=== PATIENT | male | born 1970 | race Caucasian/White ===

== ENCOUNTER 2016-12-28 16:22 | Emergency (ER) | payer OTHER ==
[~2016-12-28] VITALS: Ht 182.9 cm; Wt 95.3 kg
[~2016-12-28 16:22] MED LIST: AMLODIPINE BESYL5 M1 PO; ASPIRIN EC325 MG PO; ASPIRIN EC81 M1 PO; ASPIRIN81 M1 PO; CLONAZEPAM0.5 MG PO; COMPAZINE10 M1 PO; COZAAR25 M1 PO; CYMBALTA 20 MG20 MG PO; CYMBALTA 30 MG30 MG PO; DILAUDID2 M1 PO; DILAUDID2 MG PO; DULOXETINE HCL30 MG PO; ECOTRIN81 MG PO; ELAVIL25 MG PO; ELIQUIS5 M1 PO; ELIQUIS5 MG PO; HYDROMORPHONE HC2 M1 PO; HYDROMORPHONE HC2 MG PO; IMDUR30 MG PO; KLONOPIN 1MG TAB1 MG PO; KLONOPIN1 MG PO; LIPITOR80 M1 PO; LOPRESSOR100 MG PO; LOPRESSOR50 MG PO; LYRICA25 MG PO; LYRICA50 MG PO; MARINOL2.5 M1 PO; METOPROLOL SUC100 M1 PO; METOPROLOL TART25 M1 PO; MIRALAX17 GM PO; MOTRIN400 MG PO; MS CONTIN15 M1 PO; MS CONTIN15 MG PO; MS CONTIN30 MG PO; NICOTINE T21 MG/24 H TOP; NITROGLYCERIN0.4 M1 SL; ONDANSETRON HCL4 MG PO; ONDANSETRON ODT4 MG PO; OXYCODONE HCL5 M1 PO; OXYCODONE HCL5 M2 PO; OXYCODONE5 M1 PO; OXYCODONE5 MG PO; PERCOCET 325 MG1 TA2 PO; PERCOCET 5-3251 EACH PO; PERCOCET PO; POTASSIUM GLUC550 M1 PO; PRAVASTATIN SOD40 MG PO; PRAVASTATIN40 MG PO; PRAZOSIN PO; PRINIVIL5 M1 PO; PROMETHAZINE HC25 M3 PO; PROMETHAZINE12.5 M2 PO; PROTONIX 40MG T40 MG PO; PROTONIX40 M3 PO; REGLAN10 M1 PO; ROXICODONE5 MG PO; TOPROL XL 100100 MG PO; TRAMADOL HCL50 M1 PO; TYLENOL500 MG PO; ULTRAM(MONOGRAP50 MG PO; ZENPEP DR 15,01 EACH PO; ZENPEP DR 40,01 EACH PO; ZOFRAN 8MG8 MG PO; ZOFRAN ODT4 M1 SL; ZOFRAN ODT4 MG PO; ZOFRAN ODT4 MG SL; ZOFRAN4 M1 SL; [UNRECOGNIZED DRUG - CODE] PO
--- NOTE | 2016-12-28 16:57 | ED GI/GU/ABDOMINAL COMPLAINT ---
History of Present Illness General Chief Complaint: Abdominal Pain/Flank Pain Stated Complaint: ABD PAIN Source: patient Exam Limitations: no limitations Vital Signs & Intake/Output Vital Signs & Intake/Output Vital Signs Date Time Temp Pulse Resp B/P Pulse O2 O2 Flow FiO2 Ox Delivery Rate 12/28 1858 96.6 67 16 128/71 94 Room Air 12/28 1625 98.0 96 18 151/83 100 Room Air Allergies Coded Allergies: NSAIDS (Non-Steroidal Anti-Inflamma (Intermediate, DUE TO PANCREATITIS 07/06/16) Reconcile Medications Amlodipine Besylate 5 MG TABLET 1 TAB PO DAILY HEART (Reported) Apixaban (Eliquis) 5 MG TABLET 1 TAB PO BID BLOOD THINNER (Reported) Aspirin (Ecotrin*) 81 MG TABLET.DR 1 TAB PO DAILY HEART/BLOOD (Reported) Atorvastatin Calcium (Lipitor) 80 MG TABLET 1 TAB PO DAILY CHOLESTEROL ( Reported) Hydrocodone/Acetaminophen (Hydrocodon-Acetaminoph 7.5-325) 7.5 MG-325 MG TABLET 1 TAB PO Q6H PRN PAIN (Reported) Hydromorphone HCl (Dilaudid) 2 MG TABLET 1 TAB PO BIDP PRN pain Lipase/Protease/Amylase (Zenpep Dr 40,000 Units Capsule) 40K-136K CAPSULE.DR 4 CAP PO AC PANCREATIC BURNOUT (Reported) Metoprolol Tartrate 25 MG TABLET 25 MG PO BID HYPERTENSION (Reported) Nitroglycerin 0.4 MG TAB.SUBL 0.4 TAB SL AD PRN CHEST PAIN (Reported) Ondansetron (Zofran Odt) 4 MG TAB.RAPDIS 1 TAB SL TIDP PRN N/V (Reported) Pantoprazole Sodium (Protonix) 40 MG TABLET. 1 TAB PO DAILY GI (Reported) Triage Note: PT TO ED FOR VOMITING SINCE THIS MORNING, NO IMPOROVEMENT WITH ZOFRAN. STATING "I KNOW ITS MY PANCREATITIS". Triage Nurses Notes Reviewed? yes Onset: Gradual Duration: day(s): (1) Timing: recent history Quality/Severity: cramping, moderate, sharpness Severity Numbers: 7 Location: epigastric Radiation: no radiation Activities at Onset: none Prior Abdominal Problems: similar symptoms Past Sexual History: Unobtainable at this time No Modifying Factors: none HPI: Patient is a 46-year-old male with history of chronic pancreatitis presenting to the emergency department with chief complaint of upper abdominal pain that started this morning. Patient reports associated nausea and dry heaving with one episode of emesis this morning. He tried taking Vicodin that he has unknown down with pain without relief. Denies any urinary frequency or urgency or dysuria. Reports 1 episode of blood-tinged sputum with coughing this morning. He has been alcohol free for the past several months. Has been doing well. Has been able to gain weight. Denies any chest pain palpitations or shortness of breath. (ZARA GLASS) Past History Travel History Traveled to [place] past 21 day No Medical History Any Pertinent Medical History? 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 History of MRSA: No History of VRE: No History of CDIFF: No Pneumonia Vaccine: 06/24/16 Influenza Vaccine: 06/24/16 Surgical History Surgical History: cholecystectomy, hip replacement (left x 2), spinal fusion (L3 -L5), R FEMUR FX/SX PELVIC/FX/SX/PLATES/PINS CARDIAC STENT-BARE METAL Psychosocial History Who do you live with Sister Services at Home None What is your primary language Chinese Tobacco Use: Current Daily Use Daily Tobacco Use Amount/Type: => 5 Cigarettes daily ETOH Use: occasional use Illicit Drug Use: denies illicit drug use Family History Family History, If Any: FATHER (COPD- smoker.). , Age 71; Cause: Lung cancer. FH: emphysema FH: lung cancer MOTHER (ES[place]). , Age 54; Cause: Diabetes. Angina FH: diabetes mellitus Relation not specified for: coronary artery disease Hx Contributory? No (ZARA GLASS) Review of Systems Review of Systems Constitutional: Reports: no symptoms. Comments Review of systems: See HPI, All other systems negative. Constitutional, no chills fever or weight loss HEENT: No visual changes no sore throat no congestion Cardiovascular: No chest pain ,palpitation , orthopnea or ankle swelling Skin, no jaundice no rashes Respiratory: No dyspnea cough sputum or hemoptysis GI: No nausea no vomiting : No dysuria No hematuria Muscle skeletal: no back pain, no neck pain, Neurologic: No numbness no confusion Psych: No stress anxiety or depression,. Heme/endocrine: No bruising no bleeding no polyuria or polydipsia Immunology: No splenectomy or history of AIDS (ZARA GLASS) Physical Exam Physical Exam General Appearance: well developed/nourished, no apparent distress, alert, awake , comfortable Gastrointestinal: normal bowel sounds, soft, tenderness Comments: Well-developed well-nourished person in no acute distress HEENT: Pupils equally round and reactive to light and accommodation. Nose is atraumatic. Moist oral mucosa Neck: Normal inspection Back: Nontender, no CVA tenderness. Cardiovascular: Regular rate and rhythms no murmurs rubs or gallops, normal JVP Respiratory: Chest nontender. No respiratory distress.breath sounds clear to auscultation bilaterally Abdomen: Soft, tenderness to palpation in the epigastric region, no rebound or guarding, nondistended, no appreciable organomegaly. Normal bowel sounds. No ascites Extremity: No edema Neuro: Alert oriented x3 Skin: No appreciable rash on exposed skin, skin is warm and dry. Psych: Mood and affect is normal, memory and judgment is normal. Core Measures ACS in differential dx? Yes Severe Sepsis Present: No Septic Shock Present: No (ZARA GLASS) Progress Differential Diagnosis: PANCREATITIS, GASTRITIS, MEDICATION SEEKING, ELECTROLYTE ABNORMALITY, ESOPHAGEAL VARICES, PEPTIC ULCER DISEASE, aaa, mi,acs Plan of Care: Orders Procedure Date/time Status Add-on Test (ER Only) 12/28 171 Active EKG 12/28 1714 Active Add-on Test (ER Only) 12/28 1711 Active TROPONIN LEVEL 12/28 1709 Complete TRIGLYCERIDES 12/28 1709 Complete ETHANOL 12/28 1709 Complete LIPASE 12/28 1645 Complete COMPREHENSIVE METABOLIC PANEL 12/28 1645 Complete CBC WITHOUT DIFFERENTIAL 12/28 164 Complete AMYLASE 12/28 1645 Complete Laboratory Tests 12/28/16 1709: Anion Gap 11, Estimated GFR > 60, BUN/Creatinine Ratio 14.4, Glucose 99, Calcium 9.9, Total Bilirubin 0.6, AST 25, ALT 43, Alkaline Phosphatase 65, Troponin I < 0.01, Total Protein 7.3, Albumin 4.6, Globulin 2.7, Albumin/Globulin Ratio 1.7, Triglycerides 251 H, Amylase 48, Lipase 309 H, CBC w Diff NO MAN DIFF REQ, RBC 5.07, MCV 90.3, MCH 30.2, RDW 14.0, MPV 8.8, Gran % 68.0, Lymphocytes % 24.1, Monocytes % 6.2, Eosinophils % 1.1, Basophils % 0.6, Absolute Granulocytes 4.8, Absolute Lymphocytes 1.7, Absolute Monocytes 0.4, Absolute Eosinophils 0.1, Absolute Basophils 0, PUBS MCHC 33.4, Serum Alcohol < 10.0 Initial ED EKG: NSR Prior EKG: unchanged Comments: On arrival patient is afebrile with reproducible pain in the epigastric region. History of chronic otitis has been seen here several times for same pain. Patient also complaining of nausea. Patient medicated with IV fluids, nausea medication. Started with IV Tylenol. CBC, CMP, amylase and lipase and triglycerides sent. Patient informed to follow up results . Patient still having pain after IV Tylenol. IV Dilaudid ordered. Fluid still infusing. Patient reports that nausea has improved. 12/28/2016 6:50:45 PM patient reporting that he feels/better after Dilaudid. Patient will be going home with a limited prescription for Dilaudid. Likely exacerbation of chronic pancreatitis. Patient educated on triglycerides, he'll modify diet. He will follow-up with his PCP. EKG is unchanged. (ZARA GLASS) Departure Departure Time of Disposition: 1842 Disposition: HOME OR SELF CARE Condition: Stable Clinical Impression Primary Impression: Chronic pancreatitis Qualifiers: Pancreatitis type: unspecified pancreatitis type Qualified Code: K86.1 - Other chronic pancreatitis Referrals: ADDIS WILBURN MD (PCP/Family) Additional Instructions: Follow-up with your primary care physician call to make appt. Increase fluids. you were given a copy of your lab work results. Clear liquid diet for next 24- 48 hours. your triglycerides were elevated make sure you follow-up with your primary care physician regarding this. Departure Forms: Customer Survey General Discharge Information Prescriptions: Current Visit Scripts Hydromorphone HCl (Dilaudid) 1 TAB PO BIDP PRN pain #10 TAB (ZARA GLASS) PA/CLIENT LIAISON Co-Sign Statement Statement: ED Attending supervision documentation- [] I saw and evaluated the patient. I have also reviewed all the pertinent lab results and diagnostic results. I agree with the findings and the plan of care as documented in the PA's/CLIENT LIAISON's documentation. [X] I have reviewed the ED Record and agree with the PA's/CLIENT LIAISON's documentation. [] Additions or exceptions (if any) to the PAs/CLIENT LIAISON's note and plan are summarized below: [] (SARAHY COLE,ALIVIA Petty)
[2016-12-28] MEDS ORDERED: HYDROCODON-ACE1 EAC3 PO (17:09)
[2016-12-28 17:23] LABS: ABSOLUTE BASOPHIL COUNT 0 /CUMM (0.0-0.2); ABSOLUTE EOSINOPHIL COUNT 0.1 /CUMM (0.0-0.7); ABSOLUTE GRANULOCYTE CT 4.8 /CUMM (1.4-6.5); ABSOLUTE LYMPH COUNT 1.7 /CUMM (1.2-3.4); ABSOLUTE MONOCYTE COUNT 0.4 /CUMM (0.10-0.60); BASOPHIL % 0.6 % (0.0-2.0); EOSINOPHIL % 1.1 % (0-5); HEMATOCRIT 45.8 % (42-52); MEAN CORPUSCULAR HGB 30.2 PG (27.0-31.0); MEAN CORPUSCULAR HGB CONC 33.4 G/DL (33.0-37.0); MEAN CORPUSCULAR VOLUME 90.3 FL (80.0-94.0); MEAN PLATELET VOLUME 8.8 FL (7.4-10.4); PLATELET COUNT 215 /CUMM (130-400); RED BLOOD CELL CT 5.07 /CUMM (4.70-6.10); WHITE BLOOD CELL COUNT 7.1 /CUMM (4.8-10.8)
[2016-12-28] MEDS ORDERED: DILAUDID2 M1 PO ×2 (18:45→18:47)
[2016-12-28 18:58] VITALS: BP 128/71
== END 2016-12-28 18:58 ==
LOC: ERH 16:22
PROVIDERS: Physician Assistant
DX: K86.1 Other chronic pancreatitis (principal)
CPT/HCPCS: 93005; 93010; 96374; 96375; G0480; J0131; J2765

== ENCOUNTER 2017-02-19 18:12 | Emergency (ER) | payer OTHER ==
[~2017-02-19] VITALS: Ht 185.4 cm; Wt 90.7 kg
[~2017-02-19 18:12] MED LIST changes: +HYDROCODON-ACE1 EAC3 PO
[2017-02-19 18:17] VITALS: BP 152/102
[2017-02-19 18:35] LABS: ABSOLUTE BASOPHIL COUNT 0.1 /CUMM (0.0-0.2); ABSOLUTE EOSINOPHIL COUNT 0.2 /CUMM (0.0-0.7); ABSOLUTE GRANULOCYTE CT 5.6 /CUMM (1.4-6.5); ABSOLUTE LYMPH COUNT 2.3 /CUMM (1.2-3.4); ABSOLUTE MONOCYTE COUNT 0.4 /CUMM (0.10-0.60); BASOPHIL % 0.7 % (0.0-2.0); EOSINOPHIL % 1.9 % (0-5); HEMATOCRIT 41.9 % (42-52); MEAN CORPUSCULAR HGB 29.6 PG (27.0-31.0); MEAN CORPUSCULAR HGB CONC 33.2 G/DL (33.0-37.0); MEAN PLATELET VOLUME 8.9 FL (7.4-10.4); PLATELET COUNT 259 /CUMM (130-400); RBC DISTRIBUTION WIDTH 14.1 % (11.5-14.5); WHITE BLOOD CELL COUNT 8.5 /CUMM (4.8-10.8)
--- NOTE | 2017-02-19 19:42 | ED GI/GU/ABDOMINAL COMPLAINT ---
History of Present Illness General Chief Complaint: Abdominal Pain/Flank Pain Stated Complaint: ABD PAIN, Hx CHRONIC PANCREATITIS Source: patient Exam Limitations: no limitations Vital Signs & Intake/Output Vital Signs & Intake/Output Vital Signs Date Time Temp Pulse Resp B/P B/P Pulse O2 O2 Flow FiO2 Mean Ox Delivery Rate 02/19 1817 97.6 106 20 152/102 98 Room Air ED Intake and Output 02/20 0000 02/19 1200 Intake Total Output Total Balance Patient 200 lb Weight Weight Estimated Measurement Method Allergies Coded Allergies: NSAIDS (Non-Steroidal Anti-Inflamma (Intermediate, DUE TO PANCREATITIS 07/06/16) Reconcile Medications Amlodipine Besylate 5 MG TABLET 1 TAB PO DAILY HEART (Reported) Apixaban (Eliquis) 5 MG TABLET 1 TAB PO BID BLOOD THINNER (Reported) Aspirin (Ecotrin*) 81 MG TABLET.DR 1 TAB PO DAILY HEART/BLOOD (Reported) Atorvastatin Calcium (Lipitor) 80 MG TABLET 1 TAB PO DAILY CHOLESTEROL ( Reported) Hydrocodone/Acetaminophen (Hydrocodon-Acetaminoph 7.5-325) 7.5 MG-325 MG TABLET 1 TAB PO Q6H PRN PAIN (Reported) Hydromorphone HCl (Dilaudid) 2 MG TABLET 1 TAB PO BIDP PRN pain Lipase/Protease/Amylase (Zenpep Dr 40,000 Units Capsule) 40K-136K CAPSULE.DR 4 CAP PO AC PANCREATIC BURNOUT (Reported) Metoprolol Tartrate 25 MG TABLET 25 MG PO BID HYPERTENSION (Reported) Nitroglycerin 0.4 MG TAB.SUBL 0.4 TAB SL AD PRN CHEST PAIN (Reported) Ondansetron (Zofran Odt) 4 MG TAB.RAPDIS 1 TAB SL TIDP PRN N/V (Reported) Oxycodone HCl/Acetaminophen (Percocet 5-325 MG Tablet) 5 MG-325 MG TABLET 1 TAB PO 4XDP PRN PAIN six...[id number] Pantoprazole Sodium (Protonix) 40 MG TABLET.DR 1 TAB PO DAILY GI (Reported) Promethazine HCl (Phenergan) 25 MG SUPP.RECT 1 SUPP MD TID PRN NAUSEA Triage Note: PT TO ED C/O "PANCREATITIS FLARE UP". H/O SAME. HAS BEEN HAVING UPPER ABD PAIN X A FEW DAYS. ALSO C/O N/V/D. Triage Nurses Notes Reviewed? yes Onset: Gradual Duration: day(s):, waxing and waning Timing: recent history Quality/Severity: burning, cramping Location: epigastric Radiation: back Activities at Onset: eating Prior Abdominal Problems: similar symptoms Modifying Factors: Worsens With: palpation, vomiting. Associated Symptoms: abdominal pain, nausea/vomiting HPI: 46 yo gentleman h/o chronic pancreatitis x 5, s/p sphincter of otti dilation x 5, chonic pain, presents with mid epigastric pain radiating to the mid back consistent with prior episodes of chronic pancreatitis. He notes that he has been vomiting all day... "And now it's yellow... I haven't had anything to eat all day... and my stool are loose too." No fever, chills, chest pain, nausea, shortness of breath. Past History Travel History Traveled to [place] past 21 day No Medical History Any Pertinent Medical History? 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 , Age 71; Cause: Lung cancer. FH: emphysema FH: lung cancer MOTHER (ESRD/[place]). , Age 54; Cause: Diabetes. Angina FH: diabetes mellitus Relation not specified for: coronary artery disease Hx Contributory? No Review of Systems Review of Systems Constitutional: Reports: no symptoms. EENTM: Reports: no symptoms. Respiratory: Reports: no symptoms. Cardiovascular: Reports: no symptoms. GI: Reports: no symptoms. Genitourinary: Reports: no symptoms. Musculoskeletal: Reports: no symptoms. Skin: Reports: no symptoms. Neurological/Psychological: Reports: no symptoms. Hematologic/Endocrine: Reports: no symptoms. Immunologic/Allergic: Reports: no symptoms. All Other Systems: Reviewed and Negative Physical Exam Physical Exam General Appearance: well developed/nourished, mild distress Head: atraumatic, normal appearance Eyes: Bilateral: normal appearance. Ears, Nose, Throat, Mouth: hearing grossly normal Neck: normal inspection, supple, full range of motion, normal alignment Respiratory: normal breath sounds, chest non-tender, no respiratory distress, quiet respiration, lungs clear Cardiovascular: regular rate/rhythm Gastrointestinal: normal bowel sounds, soft, non-tender, mild mid epigastric tenderness to palpation Back: normal inspection Extremities: normal range of motion Neurologic/Psych: no motor/sensory deficits, awake, alert, oriented x 3 Skin: intact, normal color, warm/dry Core Measures ACS in differential dx? No Severe Sepsis Present: No Septic Shock Present: No Progress Differential Diagnosis: colon cancer, cholecystitis, diverticulitis, gastritis, hepatitis, pancreatitis Plan of Care: Orders Procedure Date/time Status Add-on Test (ER Only) 02/19 1959 Active EKG 02/19 1959 Active TROPONIN LEVEL 02/20 1828 Complete LIPASE 02/19 1819 Complete COMPREHENSIVE METABOLIC PANEL 02/19 1819 Complete CBC WITHOUT DIFFERENTIAL 02/19 1819 Complete AMYLASE 02/19 1819 Complete Laboratory Tests 02/19/171827: Anion Gap 15, Estimated GFR > 60, BUN/Creatinine Ratio 18.8, Glucose 105 H, Calcium 9.7, Total Bilirubin 0.5, AST 19, ALT 43, Alkaline Phosphatase 106, Troponin I < 0.01, Total Protein 7.5, Albumin 4.8, Globulin 2.7, Albumin/ Globulin Ratio 1.8, Amylase 81, Lipase 226, CBC w Diff NO MAN DIFF REQ, RBC 4.70 , MCV 89.0, MCH 29.6, RDW 14.1, MPV 8.9, Gran % 66.0, Lymphocytes % 27.1, Monocytes % 4.3, Eosinophils % 1.9, Basophils % 0.7, Absolute Granulocytes 5.6, Absolute Lymphocytes 2.3, Absolute Monocytes 0.4, Absolute Eosinophils 0.2, Absolute Basophils 0.1, PUBS MCHC 33.2 Initial ED EKG: normal axis, normal intervals, normal p-waves, normal QRS complex, normal sinus rhythm Departure Departure Disposition: HOME OR SELF CARE Condition: Stable Clinical Impression Primary Impression: Chronic pancreatitis Referrals: ADDIS WILBURN MD (PCP/Family) Departure Forms: Customer Survey General Discharge Information Prescriptions: Current Visit Scripts Oxycodone HCl/Acetaminophen (Percocet 5-325 MG Tablet) 1 TAB PO 4XDP PRN PAIN #6 TAB six...[id number] Promethazine HCl (Phenergan) 1 SUPP MD TID PRN NAUSEA #10 SUPP Ref 1 Comments pt received 2 liters ns and supportive medications... pt felt better... pt safe for discharge.
[2017-02-19] MEDS ORDERED: PERCOCET 5-3251 EACH PO (22:25)
[2017-02-19] MEDS ORDERED: PHENERGAN25 M2 PR (22:25)
== END 2017-02-19 22:34 ==
LOC: ERH 18:12
PROVIDERS: Emergency Medicine
DX: K86.1 Other chronic pancreatitis (principal)
CPT/HCPCS: 93005; 93010; 96374; 96375; J2405

== ENCOUNTER 2017-04-17 22:47 | Inpatient (IN) | payer OTHER ==
[~2017-04-17] VITALS: Ht 185.4 cm; Wt 95.3 kg
[~2017-04-17 22:47] MED LIST changes: +PHENERGAN25 M2 PR
--- NOTE | 2017-04-17 22:55 | NUR ---
PT RETURNS TO ED FOR CONTINUED IDOPATHIC CHRONIC PANCREATITIS PAIN. SEEN FOR SAME EARLIER TODAY. "I DIDN'T WAS TO BE ADMITTED BECAUSE IT WAS MY BIRTHDAY" WAS DISCHARGED AT APPROX 1830. TOOK A PERCOCET WITH WATER. PAIN BACK UP TO 06/03
--- NOTE | 2017-04-18 00:01 | NUR ---
IV EST #20 RH
--- NOTE | 2017-04-18 00:26 | NUR ---
PT MEDICATED PER EMAR FOR PAIN 06/03 WITH DILAUDID. FLUIDS RUNNING LITER 1 AND PT ALSO MEDICATED FOR NAUSEA
[2017-04-18 00:36] LABS: ABSOLUTE BASOPHIL COUNT 0.1 /CUMM (0.0-0.2); ABSOLUTE EOSINOPHIL COUNT 0.1 /CUMM (0.0-0.7); ABSOLUTE LYMPH COUNT 2.6 /CUMM (1.2-3.4); ABSOLUTE MONOCYTE COUNT 0.4 /CUMM (0.10-0.60); BASOPHIL % 0.8 % (0.0-2.0); EOSINOPHIL % 1.6 % (0-5); GRANULOCYTE % 60.8 % (42.2-75.2); HEMATOCRIT 39.4 % (42-52); MEAN CORPUSCULAR HGB 28.4 PG (27.0-31.0); MEAN CORPUSCULAR HGB CONC 33.5 G/DL (33.0-37.0); MEAN CORPUSCULAR VOLUME 84.8 FL (80.0-94.0); MEAN PLATELET VOLUME 8.7 FL (7.4-10.4); PLATELET COUNT 236 /CUMM (130-400); RED BLOOD CELL CT 4.65 /CUMM (4.70-6.10); WHITE BLOOD CELL COUNT 8.1 /CUMM (4.8-10.8)
--- NOTE | 2017-04-18 00:52 | ED GI/GU/ABDOMINAL COMPLAINT ---
History of Present Illness General Chief Complaint: Abdominal Pain/Flank Pain Stated Complaint: PANCREATITIS Source: patient Exam Limitations: no limitations Vital Signs & Intake/Output Vital Signs & Intake/Output Vital Signs Date Time Temp Pulse Resp B/P B/P Pulse O2 O2 Flow FiO2 Mean Ox Delivery Rate 04/17 2251 97.7 100 18 168/99 98 Room Air ED Intake and Output 04/18 0000 04/17 1200 Intake Total Output Total Balance Patient 210 lb Weight Allergies Coded Allergies: NSAIDS (Non-Steroidal Anti-Inflamma (Intermediate, DUE TO PANCREATITIS 03/27/17) Reconcile Medications Amlodipine Besylate 5 MG TABLET 1 TAB PO DAILY HEART (Reported) Apixaban (Eliquis) 5 MG TABLET 1 TAB PO BID BLOOD THINNER (Reported) Aspirin (Ecotrin*) 81 MG TABLET.DR 1 TAB PO DAILY HEART/BLOOD (Reported) Atorvastatin Calcium (Lipitor) 80 MG TABLET 1 TAB PO DAILY CHOLESTEROL ( Reported) Lipase/Protease/Amylase (Ion Ha 15,000 Units Capsule) 15-51-82K CAPSULE. 4 CAP PO AC PANCREATIC BURNOUT (Reported) Lipase/Protease/Amylase (Ion Ha 15,000 Units Capsule) 15-51-82K CAPSULE.DR 1 CAP PO AC SNACKS (Reported) Metoprolol Tartrate 25 MG TABLET 25 MG PO BID HYPERTENSION (Reported) Nitroglycerin 0.4 MG TAB.SUBL 0.4 TAB SL AD PRN CHEST PAIN (Reported) Ondansetron (Zofran Odt) 4 MG TAB.RAPDIS 1 TAB SL TIDP PRN N/V (Reported) Ondansetron (Zofran Odt) 4 MG TAB.RAPDIS 1 TAB SL TID PRN nausea Oxycodone HCl/Acetaminophen (Percocet 5-325 MG Tablet) 5 MG-325 MG TABLET 1-2 TAB PO Q6P PRN pancreatitis Pantoprazole Sodium (Protonix) 40 MG TABLET.DR 1 TAB PO DAILY GI (Reported) Promethazine HCl (Phenergan) 25 MG SUPP.RECT 1 SUPP SD TID PRN NAUSEA Triage Note: PT RETURNS TO ED FOR CONTINUED IDOPATHIC CHRONIC PANCREATITIS PAIN. SEEN FOR SAME EARLIER TODAY. "I DIDN'T WAS TO BE ADMITTED BECAUSE IT WAS MY BIRTHDAY" WAS DISCHARGED AT APPROX 1830. TOOK A PERCOCET WITH WATER. PAIN BACK UP TO 06/03 Triage Nurses Notes Reviewed? yes Onset: Abrupt Duration: day(s):, constant, continues in ED Timing: recent history Location: epigastric Radiation: no radiation Activities at Onset: none No Modifying Factors: none HPI: 47-year-old male comes into emergency room with complaints of epigastric pain. History of pancreatitis and pancreatic burnout. Sharp pain. Associated vomiting. Patient seen here earlier today. Patient reports that he continues to vomit. He was told to be admitted earlier today but decided that he wanted to go home. He comes back with worsening symptoms and worsening pain. Continues to vomit home. Feels like his previous pancreatitis. Pain is sharp. Related strictly to his back. (JEANNINE OLIVA) Past History Travel History Traveled to [place] past 21 day No Medical History Any Pertinent Medical History? 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 , Age 71; Cause: Lung cancer. FH: emphysema FH: lung cancer MOTHER ([place]). , Age 54; Cause: Diabetes. Angina FH: diabetes mellitus Relation not specified for: coronary artery disease Hx Contributory? No (JEANNINE OLIVA) Review of Systems Review of Systems Constitutional: Reports: no symptoms. EENTM: Reports: no symptoms. Respiratory: Reports: no symptoms. Cardiovascular: Reports: no symptoms. GI: Reports: see HPI. Genitourinary: Reports: no symptoms. Musculoskeletal: Reports: no symptoms. Skin: Reports: no symptoms. Neurological/Psychological: Reports: no symptoms. Hematologic/Endocrine: Reports: no symptoms. Immunologic/Allergic: Reports: no symptoms. All Other Systems: Reviewed and Negative (JEANNINE OLIVA) Physical Exam Physical Exam General Appearance: well developed/nourished, mild distress Head: atraumatic Eyes: Bilateral: normal appearance. Ears, Nose, Throat, Mouth: hearing grossly normal, moist mucous membrane Neck: normal inspection, full range of motion Respiratory: normal breath sounds, no respiratory distress Cardiovascular: regular rate/rhythm Gastrointestinal: soft, tenderness Back: normal inspection Extremities: normal range of motion Neurologic/Psych: awake, alert, oriented x 3 Skin: intact, normal color Core Measures ACS in differential dx? No Severe Sepsis Present: No Septic Shock Present: No (JEANNINE OLIVA) Progress Differential Diagnosis: appendicitis, cholecystitis, hepatitis, ischemic bowel, pancreatitis, peptic ulcer, PUD/GERD, perforated viscous, pyelonephritis, ureterolithiasis, urinary retention, urethritis Plan of Care: Orders Procedure Date/time Status Nothing by Mouth 04/18 B Active ED Holding Orders 04/18 107 Active Admit to inpatient 04/18 107 Active Vital Signs 04/18 107 Active Code Status 04/18 107 Active TROPONIN LEVEL 04/17 2354 Active LIPASE 04/17 2354 Active COMPREHENSIVE METABOLIC PANEL 04/17 2354 Active CBC WITHOUT DIFFERENTIAL 04/17 2354 Complete AMYLASE 04/17 2354 Active EKG 04/17 2354 Active Current Medications Sig/Dahlia Start time Last Medication Dose Stop Time Status Admin Sodium Chloride 1,000 ML Q6H 04/18 0115 UNVr (Normal Saline 0.9%) Laboratory Tests 04/18/17 0025: Anion Gap 10, Estimated GFR > 60, BUN/Creatinine Ratio 10.0, Glucose 91, Calcium 9.1, Total Bilirubin 0.4, AST 22, ALT 42, Alkaline Phosphatase 89, Troponin I Pending, Total Protein 6.6, Albumin 4.2, Globulin 2.4, Albumin/Globulin Ratio 1.8, Amylase 54, Lipase 134, CBC w Diff NO MAN DIFF REQ, RBC 4.65 L, MCV 84.8, MCH 28.4, RDW 14.0, MPV 8.7, Gran % 60.8, Lymphocytes % 32.0, Monocytes % 4.8, Eosinophils % 1.6, Basophils % 0.8, Absolute Granulocytes 5.0, Absolute Lymphocytes 2.6, Absolute Monocytes 0.4, Absolute Eosinophils 0.1, Absolute Basophils 0.1, PUBS MCHC 33.5 Diagnostic Imaging: Viewed by Me: CT Scan. Discussed w/RAD: CT Scan. Radiology Impression: PATIENT: JESUS CA PRESENT AGE: 47 PATIENT ACCOUNT NO: [id number] : 68 LOCATION: [facility] ORDERING PHYSICIAN: JEANNINE BOLIVAR SERVICE DATE: 04/17/17 EXAM TYPE : CAT - CT ABD & PELVIS W/O IV CONTRAS EXAMINATION: CT ABDOMEN AND PELVIS WITHOUT CONTRAST CLINICAL INFORMATION: Epigastric abdominal pain COMPARISON: TECHNIQUE: Multidetector volumetric imaging was performed from the superior aspect of the liver through the pubic symphysis. Sagittal and coronal reformatted images were obtained on the technologist's workstation. DLP: 687.85 mGy-cm FINDINGS: LUNG BASES: The visualized lung bases are unremarkable. LIVER, GALLBLADDER, AND BILIARY TREE: The liver demonstrates heterogeneous hypoattenuation, suspicious for nonuniform fatty infiltration. No focal hepatic lesion or biliary ductal dilatation is present. Patient is status post cholecystectomy. PANCREAS: Unremarkable. SPLEEN: Unremarkable. ADRENAL GLANDS: Unremarkable. KIDNEYS AND URETERS: The kidneys are normal in size, shape, and attenuation. No hydronephrosis, hydroureter, or obstructing calculi seen. No perinephric stranding. BLADDER: Unremarkable. GASTROINTESTINAL TRACT: The small and large bowel are unremarkable. The appendix is unremarkable. ABDOMINAL WALL: There is a tiny fat-containing left inguinal hernia. LYMPH NODES: Normal. VASCULAR: Scattered atherosclerotic calcifications are present. PELVIC VISCERA: Unremarkable. OSSEOUS STRUCTURES: There are redemonstrated postoperative changes in the spine from L4-S1. Additional postoperative changes are seen in the left pelvis and bilateral proximal femurs. IMPRESSION: No acute findings identified in the abdomen/pelvis. DICTATED BY: ARIEL GRAFF MD DATE/TIME DICTATED:47 INSPECTOR HAIRSPRING:EMILY DATE/TIME TRANSCRIBED:04/18/1749 CONFIDENTIAL, DO NOT COPY WITHOUT APPROPRIATE AUTHORIZATION. <Electronically signed in Other Vendor System> SIGNED BY: ARIEL GRAFF MD 04/18/17 0102 Initial ED EKG: normal intervals, normal p-waves, normal sinus rhythm, rate (67) (JEANNINE OLIVA) Departure Departure Disposition: STILL A PATIENT Condition: Stable Clinical Impression Primary Impression: Acute pancreatitis Referrals: ADDIS WILBURN MD (PCP/Family) Departure Forms: Customer Survey General Discharge Information Admission Note Spoke With: GABRIEL ROME MD Documentation of Exam: Documentation of any treatments & extenuating circumstances including Concerns Regarding Discharge (functional status, medication knowledge or non-compliance, living conditions, etc.) that warrant an admission rather than observation: Patient seen here earlier today. Patient continuing to have pain. Patient will require IV antibiotics. IV pain control. IV fluids. Patient not tolerating oral liquids. GI consultation. History of pancreatic burnout. (JEANNINE OLIVA) PA/FERRY BOAT CAPTAIN Co-Sign Statement Statement: ED Attending supervision documentation- [X] I saw and evaluated the patient. I have also reviewed all the pertinent lab results and diagnostic results. I agree with the findings and the plan of care as documented in the PA's/FERRY BOAT CAPTAIN's documentation. [X] I have reviewed the ED Record and agree with the PA's/FERRY BOAT CAPTAIN's documentation. [] Additions or exceptions (if any) to the PAs/FERRY BOAT CAPTAIN's note and plan are summarized below: [Patient left AMA earlier today. He was supposed to be admitted for pancreatitis. Patient has chronic pancreatitis and expectations Db and all of her RESPONSE. Patient is having periumbilical pain as well as intractable nausea and vomiting. At this point patient will be admitted for pain control and IV fluids. Gastroenterology consultation.] (SARAHY COLE,ALIVIA Dumont
--- NOTE | 2017-04-18 01:02 | CT SCAN REPORT ---
EXAMINATION: CT ABDOMEN AND PELVIS WITHOUT CONTRAST CLINICAL INFORMATION: Epigastric abdominal pain COMPARISON: 08/14/2016 TECHNIQUE: Multidetector volumetric imaging was performed from the superior aspect of the liver through the pubic symphysis. Sagittal and coronal reformatted images were obtained on the technologist's workstation. DLP: 687.85 mGy-cm FINDINGS: LUNG BASES: The visualized lung bases are unremarkable. LIVER, GALLBLADDER, AND BILIARY TREE: The liver demonstrates heterogeneous hypoattenuation, suspicious for nonuniform fatty infiltration. No focal hepatic lesion or biliary ductal dilatation is present. Patient is status post cholecystectomy. PANCREAS: Unremarkable. SPLEEN: Unremarkable. ADRENAL GLANDS: Unremarkable. KIDNEYS AND URETERS: The kidneys are normal in size, shape, and attenuation. No hydronephrosis, hydroureter, or obstructing calculi seen. No perinephric stranding. BLADDER: Unremarkable. GASTROINTESTINAL TRACT: The small and large bowel are unremarkable. The appendix is unremarkable. ABDOMINAL WALL: There is a tiny fat-containing left inguinal hernia. LYMPH NODES: Normal. VASCULAR: Scattered atherosclerotic calcifications are present. PELVIC VISCERA: Unremarkable. OSSEOUS STRUCTURES: There are redemonstrated postoperative changes in the spine from L4-S1. Additional postoperative changes are seen in the left pelvis and bilateral proximal femurs. IMPRESSION: No acute findings identified in the abdomen/pelvis.
--- NOTE | 2017-04-18 01:38 | NUR ---
PT'S ASSIGNEMENT 230 BED 01
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
--- NOTE | 2017-04-18 02:06 | NUR ---
REPORT GIVEN TO LOWELL
[2017-04-18 03:36] VITALS: BP 130/80
--- NOTE | 2017-04-18 03:38 | NUR ---
PATIENT ARRIVED TO ROOM AT 0215. HE ARRIVED VIA WHEELCHAIR FROM THE ER WITH POSSESSIONS IN LAP. NO FAMILY ACCOMPANING HIM. HE WAS ALERT AND ORIENTATED AND INDEPENDANT MOVING INTO BED. HE WAS ORIENTATED TO ROOM AND PRIMARY NURSE AND MST. VITALS STABLE. MD ROJAS AND MD [place]ORD ON HAND TO QUESTION AND ASSESS PATIENT AND ANSWER ANY QUESTIONS HE HAD FOR ME OR THEM. WILL CONTINUE TO MONITOR
--- NOTE | 2017-04-18 05:47 | Admission Certification ---
Admission Certification Certification Statement - As attending physician, I certify that at the time of - admission, based on clinical presentation, severity of - symptoms, need for further diagnostic testing and - therapeutic interventions, and risk of adverse outcomes - without in-hospital treatment, in my clinical assessment, - this patient requires an acute hospital stay for a minimum - of two nights or longer. I have also considered psychsocial - factors such as support system, advanced age, financial - issues, cognitive issues, and failed out-patient treatments, - past re-admission history, safety of patient, and lack of - compliance as applicable. Specific rationale supporting this admission is: Pancreatitis
[2017-04-18 06:24] VITALS: BP 124/80
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
--- NOTE | 2017-04-18 14:18 | PN- Att Addend ---
Attending Addendum Attending Brief Note Pt being admitted for abdominal pain secondary to acute pancreatitis. Will advance diet as tolerated. Pt with multiple prior episodes of pancreatitis and is currently on pancreatic enzyme supplementation. cont on clear liquid diet for now. Pain managment and Iv fluids. [facility] and from [place]. d/w pt the care plan.
[2017-04-18 14:21] VITALS: BP 122/70
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
--- NOTE | 2017-04-18 16:21 | RADIOLOGY REPORT ---
EXAMINATION: XR CHEST CLINICAL INFORMATION: Abdominal pain and vomiting. Pancreatitis. Pleural effusion. COMPARISON: CT scan of the chest dated 04/18/2017. TECHNIQUE: 2 views of the chest were obtained. FINDINGS: The cardiomediastinal silhouette is within normal limits in size. And implantable cardiac technologist is seen projected over the anterior left mid chest. Lungs bilaterally are symmetrically expanded and essentially clear. No focal consolidation is seen. No effusion or pneumothorax is seen. Bony structures are unremarkable. IMPRESSION: No acute cardiopulmonary process seen.
--- NOTE | 2017-04-18 17:20 | NUR ---
ALERT AND ORIENTED X 3. ON ROOM AIR. DENIES SHORTNESS OF BREATH VITAL SIGNS STABLE. DENIES CHEST PAIN. + PULSES. DENIES NUMBNESS/TINGLING NO EDEMA. + BOWEL SOUNDS. COMPLAINS OF NAUSEA. MEDICATION WAS GIVEN FOR DISCOMFORT. STEADY GAIT. WILL CONTINUE TO MONITOR
[2017-04-18 21:40] VITALS: BP 135/78
[2017-04-19 06:48] VITALS: BP 140/70
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
[2017-04-19 08:24] LABS: ABSOLUTE BASOPHIL COUNT 0 /CUMM (0.0-0.2); ABSOLUTE EOSINOPHIL COUNT 0.1 /CUMM (0.0-0.7); ABSOLUTE GRANULOCYTE CT 2.9 /CUMM (1.4-6.5); ABSOLUTE LYMPH COUNT 2.3 /CUMM (1.2-3.4); ABSOLUTE MONOCYTE COUNT 0.4 /CUMM (0.10-0.60); BASOPHIL % 0.5 % (0.0-2.0); EOSINOPHIL % 1.9 % (0-5); GRANULOCYTE % 50.1 % (42.2-75.2); HEMATOCRIT 39.4 % (42-52); MEAN CORPUSCULAR HGB 28.4 PG (27.0-31.0); MEAN CORPUSCULAR HGB CONC 33.4 G/DL (33.0-37.0); MEAN CORPUSCULAR VOLUME 84.9 FL (80.0-94.0); MEAN PLATELET VOLUME 8.9 FL (7.4-10.4); PLATELET COUNT 214 /CUMM (130-400); RED BLOOD CELL CT 4.64 /CUMM (4.70-6.10); WHITE BLOOD CELL COUNT 5.8 /CUMM (4.8-10.8)
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
--- NOTE | 2017-04-19 12:55 | Patient Discharge Instructions ---
Discharge Instructions General Discharge Information You were seen/treated for: Pancreatitis Abdominal pain Watch for these problems: Abdominal Pain, Nausea, vomiting Special Instructions: Please follow up with your PCP within a week of discharge. Please follow-up with chimney sweeper within 1-2 weeks after discharge. Diet Recommended Diet: Low Fat Activity Full Activity/No Limits: Yes Acute Coronary Syndrome Inclusion Criteria At DC or during hospital stay patient has or had the following: ACS DIAGNOSIS No Discharge Core Measures Meds if any: Prescribed or Continued at Discharge Meds if any: NOT Prescribed or Continued at Discharge Congestive Heart Failure Inclusion Criteria At DC or during hospital stay patient has or had the following: CHF DIAGNOSIS No Discharge Core Measures Meds if any: Prescribed or Continued at Discharge Meds if any: NOT Prescribed or Continued at Discharge Cerebrovascular accident Inclusion Criteria At DC or during hospital stay patient has or had the following: CVA/TIA Diagnosis No Discharge Core Measures Meds if any: Prescribed or Continued at Discharge Meds if any: NOT Prescribed or Continued at Discharge Venous thromboembolism Inclusion Criteria VTE Diagnosis No VTE Type NONE VTE Confirmed by (Test) NONE Discharge Core Measures - Per Current guidelines, there needs to be overlap - treatment for the first 5 days of Warfarin therapy. - If discharged on Warfarin prior to 5 days of - overlap therapy, the patient will need to be - assessed for post discharge needs including - *Post discharge parental anticoagulation - *Warfarin and/or parental anticoagulation education - *Follow up date to check INR post discharge At least 5 days overlap therapy as Inpatient No Meds if any: Prescribed or Continued at Discharge Note: Overlap Therapy is Warfarin and Anticoagulant Meds if any: NOT Prescribed or Continued at Discharge
[2017-04-19 14:26] VITALS: BP 118/70
--- NOTE | 2017-04-19 17:17 | PN- Att Addend ---
Attending MD Review Statement Attending Statement Attending MD Statement: examined this patient, discuss w/resident/PA/CHIEF SOLUTION ARCHITECT, agreed w/resident/PA/CHIEF SOLUTION ARCHITECT, reviewed EMR data (avail), discussed w/nursing Attending Assessment/Plan: Laboratory Tests 04/19/17 0715: Anion Gap 10, Estimated GFR > 60, BUN/Creatinine Ratio 9.0, CBC w Diff NO MAN DIFF REQ, RBC 4.64 L, MCV 84.9, MCH 28.4, RDW 14.0, MPV 8.9, Gran % 50.1, Lymphocytes % 40.0, Monocytes % 7.5, Eosinophils % 1.9, Basophils % 0.5, Absolute Granulocytes 2.9, Absolute Lymphocytes 2.3, Absolute Monocytes 0.4, Absolute Eosinophils 0.1, Absolute Basophils 0, PUBS MCHC 33.4 Vital Signs Date Time Temp Pulse Resp B/P B/P Pulse O2 O2 Flow FiO2 Mean Ox Delivery Rate 04/19 1426 98.8 61 18 118/70 97 Room Air 04/19 1031 62 142/72 04/19 1031 62 142/72 04/19 0648 98.1 60 20 140/70 97 Room Air 04/18 2140 98.2 63 18 135/78 97 Room Air 04/18 2135 63 135/78 Reviewed pts records from [facility]- EUS and ERCP- pt admitted with acute on chronic pancreatitis. Will advance the diet to low fat diet. Will see how he tolerates, if tolerating good and pain better will plan dc tomorrow to home.
[2017-04-19 22:29] VITALS: BP 122/62
[2017-04-20 06:39] VITALS: BP 110/50
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
[2017-04-20 08:23] LABS: ABSOLUTE BASOPHIL COUNT 0 /CUMM (0.0-0.2); ABSOLUTE EOSINOPHIL COUNT 0.1 /CUMM (0.0-0.7); ABSOLUTE GRANULOCYTE CT 3.1 /CUMM (1.4-6.5); ABSOLUTE LYMPH COUNT 2.1 /CUMM (1.2-3.4); ABSOLUTE MONOCYTE COUNT 0.5 /CUMM (0.10-0.60); BASOPHIL % 0.6 % (0.0-2.0); EOSINOPHIL % 2.2 % (0-5); GRANULOCYTE % 52.9 % (42.2-75.2); HEMATOCRIT 42.3 % (42-52); MEAN CORPUSCULAR HGB 28.2 PG (27.0-31.0); MEAN CORPUSCULAR HGB CONC 33.1 G/DL (33.0-37.0); MEAN CORPUSCULAR VOLUME 85.4 FL (80.0-94.0); MEAN PLATELET VOLUME 9.1 FL (7.4-10.4); PLATELET COUNT 227 /CUMM (130-400); RBC DISTRIBUTION WIDTH 13.7 % (11.5-14.5); RED BLOOD CELL CT 4.96 /CUMM (4.70-6.10); WHITE BLOOD CELL COUNT 5.8 /CUMM (4.8-10.8)
[2017-04-20 09:34] VITALS: BP 110/50
== END 2017-04-20 13:50 | DRG 282 ==
LOC: ERH 22:47 → ERHI 04-18 01:07 → 2NA 04-18 01:07 → ENRESERV 04-18 01:37 → 2NA 04-18 02:12
PROVIDERS: Internal Medicine; Physician Assistant Medical; Student in an Organized Health Care Education/Training Program; ADMIT Internal Medicine
DX: K85.00 Idiopathic acute pancreatitis without necrosis or infection (principal); I10 Essential (primary) hypertension; E78.5 Hyperlipidemia, unspecified; I48.91 Unspecified atrial fibrillation; I25.10 Atherosclerotic heart disease of native coronary artery without angina pectoris; Z72.0 Tobacco use; I25.2 Old myocardial infarction; Z86.73 Personal history of transient ischemic attack (TIA), and cerebral infarction without residual deficits; Z90.49 Acquired absence of other specified parts of digestive tract; Z98.1 Arthrodesis status; Z98.890 Other specified postprocedural states
CPT/HCPCS: 2NASP; 36415; 74176; 82436; 93005; 93010; 96374; 96375; J2550; J2765

== ENCOUNTER 2017-10-18 22:49 | Emergency (ER) | payer OTHER ==
[2017-10-18 23:10] LABS: ABSOLUTE BASOPHIL COUNT 0.1 /CUMM (0.0-0.2); ABSOLUTE EOSINOPHIL COUNT 0.1 /CUMM (0.0-0.7); ABSOLUTE GRANULOCYTE CT 5.3 /CUMM (1.4-6.5); ABSOLUTE LYMPH COUNT 3.1 /CUMM (1.2-3.4); ABSOLUTE MONOCYTE COUNT 0.5 /CUMM (0.10-0.60); BASOPHIL % 0.8 % (0.0-2.0); EOSINOPHIL % 1.4 % (0-5); GRANULOCYTE % 58.6 % (42.2-75.2); HEMATOCRIT 46.8 % (42-52); MEAN CORPUSCULAR HGB CONC 33.7 G/DL (33.0-37.0); MEAN CORPUSCULAR VOLUME 88.9 FL (80.0-94.0); MEAN PLATELET VOLUME 8.5 FL (7.4-10.4); PLATELET COUNT 292 /CUMM (130-400); RBC DISTRIBUTION WIDTH 13.5 % (11.5-14.5); RED BLOOD CELL CT 5.27 /CUMM (4.70-6.10)
--- NOTE | 2017-10-19 01:30 | RADIOLOGY REPORT ---
EXAMINATION: XR PORTABLE CHEST CLINICAL INFORMATION: Chest pain COMPARISON: 04/18/2017 TECHNIQUE: Portable frontal view of the chest was obtained. FINDINGS: Loop recorder overlies the medial left chest. The lungs are clear with no focal consolidation. No evidence of pneumothorax, pulmonary edema, or pleural effusions. The cardiomediastinal silhouette is unremarkable. No acute osseous findings. IMPRESSION: No acute cardiopulmonary findings.
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
[2017-10-19 03:53] VITALS: BP 148/74
[2017-10-19] MEDS ORDERED: ATIVAN1 M1 PO (04:16)
== END 2017-10-19 04:24 ==
LOC: ERH 22:49
PROVIDERS: Emergency Medicine
DX: R07.9 Chest pain, unspecified (principal); F43.0 Acute stress reaction; I10 Essential (primary) hypertension
CPT/HCPCS: 71045; 93005; 93010; 96374; 96375; 99291

== ENCOUNTER 2018-02-18 12:07 | Emergency (ER) | payer OTHER ==
[~2018-02-18] VITALS: Ht 185.4 cm; Wt 95.3 kg
[~2018-02-18 12:07] MED LIST changes: +ATIVAN1 M1 PO
[2018-02-18 12:34] LABS: ABSOLUTE BASOPHIL COUNT 0.1 /CUMM (0.0-0.2); ABSOLUTE EOSINOPHIL COUNT 0.1 /CUMM (0.0-0.7); ABSOLUTE GRANULOCYTE CT 6.5 /CUMM (1.4-6.5); ABSOLUTE LYMPH COUNT 2.2 /CUMM (1.2-3.4); ABSOLUTE MONOCYTE COUNT 0.5 /CUMM (0.10-0.60); EOSINOPHIL % 0.9 % (0-5); GRANULOCYTE % 69.4 % (42.2-75.2); HEMATOCRIT 50.2 % (42-52); MEAN CORPUSCULAR HGB 30.4 PG (27.0-31.0); MEAN CORPUSCULAR HGB CONC 33.5 G/DL (33.0-37.0); MEAN CORPUSCULAR VOLUME 90.6 FL (80.0-94.0); MEAN PLATELET VOLUME 8.6 FL (7.4-10.4); PLATELET COUNT 309 /CUMM (130-400); RBC DISTRIBUTION WIDTH 13.6 % (11.5-14.5); RED BLOOD CELL CT 5.54 /CUMM (4.70-6.10); WHITE BLOOD CELL COUNT 9.4 /CUMM (4.8-10.8)
--- NOTE | 2018-02-18 12:54 | ED CARDIAC/CP/PALPITATIONS ---
History of Present Illness General Chief Complaint: Chest Pain Stated Complaint: CHEST PAIN Source: patient, old records Exam Limitations: no limitations Vital Signs & Intake/Output Vital Signs & Intake/Output Vital Signs Date Time Temp Pulse Resp B/P B/P Pulse O2 O2 Flow FiO2 Mean Ox Delivery Rate 02/18 1545 97.7 58 18 119/70 98 Room Air 02/18 1544 96.2 02/18 1503 96.2 02/18 1340 96.2 02/18 1340 68 117/66 02/18 1313 96.2 75 18 159/85 02/18 1300 75 18 159/85 98 Room Air 02/18 1251 96 Room Air 02/18 1215 96.2 82 18 186/96 98 Room Air Allergies Coded Allergies: NSAIDS (Non-Steroidal Anti-Inflamma (Intermediate, DUE TO PANCREATITIS 09/14/17) Reconcile Medications Amlodipine Besylate 5 MG TABLET 1 TAB PO DAILY HEART (Reported) Apixaban (Eliquis) 5 MG TABLET 1 TAB PO BID BLOOD THINNER (Reported) Aspirin (Ecotrin*) 81 MG TABLET.DR 1 TAB PO DAILY HEART/BLOOD (Reported) Atorvastatin Calcium (Lipitor) 80 MG TABLET 1 TAB PO DAILY CHOLESTEROL ( Reported) Lipase/Protease/Amylase (Ion Ha 15,000 Units Capsule) 15-51-82K CAPSULE. 4 CAP PO AC PANCREATIC insufficiency (Reported) Lipase/Protease/Amylase (Ion Ha 15,000 Units Capsule) 15-51-82K CAPSULE. 1 CAP PO AC Pacnreatic insufficiency (Reported) Please take with snacks LORazepam (Ativan) 1 MG TAB 1 TAB PO TID PRN anxiety Metoprolol Tartrate 25 MG TABLET 25 MG PO BID HYPERTENSION (Reported) Nitroglycerin 0.4 MG TAB.SUBL 0.4 TAB SL AD PRN CHEST PAIN (Reported) Ondansetron (Zofran Odt) 4 MG TAB.RAPDIS 1 TAB SL TID PRN nausea Ondansetron (Zofran Odt) 4 MG TAB.RAPDIS 1 TAB SL TID PRN nausea Oxycodone HCl/Acetaminophen (Percocet 5-325 MG Tablet) 5 MG-325 MG TABLET 1 TAB PO TID PRN PAIN Oxycodone HCl/Acetaminophen (Percocet 5-325 MG Tablet) 5 MG-325 MG TABLET 1-2 TAB PO Q6P PRN severe pain Pantoprazole Sodium (Protonix) 40 MG TABLET.DR 1 TAB PO DAILY GI (Reported) Promethazine HCl (Phenergan) 25 MG SUPP.RECT 1 SUPP OK TID PRN NAUSEA Core Measure Meds Pre-Hospital aspirin, Eliquis Triage Note: 47 Y/O MALE C/O INTERMITTENT L SIDED CHEST PAIN SINCE THIS AM. 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 STATES THE PAIN COMES AND GOES BUT IS "SHARP LIKE AN ICE PICK" WHEN IT OCCURS; PT STATES HE DOES GET SHORT RELIEF WHEN HE TAKES NITRO - HAS TAKEN 5 SINCE 0800, LAST DOSE 1 HOUR AGO. DENIES SOB. DENIES N/V/D. DENIES DIAPHORESIS. EKG COMPLETED. BLOOD DRAW IN PROGRESS Triage Nurses Notes Reviewed? yes Onset: Morning Duration: hour(s):, continues in ED, intermittent Timing: recent history Quality/Severity: moderate, sharp Location: Left-sided Radiation: no radiation Activities at Onset: activity, rest Prior Chest Pain/Card Workup: cardiac cath, echocardiography, heart attack, stress test Modifying Factors: Improves With: movement, rest. Nitro Today/Relief: 0.4 mg x 4, mild relief Aspirin Today: 81 mg x 2 Associated Symptoms: anxiety HPI: 12 hours prior to admission patient complains of episodic sharp left-sided chest pain relieved with some with nitroglycerin rest worse with anxiety stress exertion. He denies fever chills nausea vomiting diarrhea shortness breath headache dysuria rash bleeding. Past History Travel History Traveled to [place] past 21 day No Medical History Any Pertinent Medical History? 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 , Age 71; Cause: Lung cancer. FH: emphysema FH: lung cancer MOTHER (ESRD/OK). , Age 54; Cause: Diabetes. Angina FH: diabetes mellitus Relation not specified for: coronary artery disease Hx Contributory? No Review of Systems Review of Systems Constitutional: Reports: no symptoms. EENTM: Reports: no symptoms. Respiratory: Reports: no symptoms. Cardiovascular: Reports: see HPI, chest pain. GI: Reports: no symptoms. Genitourinary: Reports: no symptoms. Musculoskeletal: Reports: no symptoms. Skin: Reports: no symptoms. Neurological/Psychological: Reports: see HPI, anxiety. Hematologic/Endocrine: Reports: no symptoms. Immunologic/Allergic: Reports: no symptoms. All Other Systems: Reviewed and Negative Physical Exam Physical Exam General Appearance: well developed/nourished, alert, awake, anxious, moderate distress Head: atraumatic, normal appearance Eyes: Bilateral: normal appearance, PERRL, EOMI. Ears, Nose, Throat: normal pharynx, normal ENT inspection, hearing grossly normal Neck: normal inspection, supple, full range of motion, no midline tenderness Respiratory: normal breath sounds, chest non-tender, no respiratory distress, quiet respiration, lungs clear Cardiovascular: regular rate/rhythm, normal peripheral pulses, norml femoral pulses equa Peripheral Pulses: 4+ carotid (R), 4+ carotid (L) Gastrointestinal: normal bowel sounds, soft, non-tender, no organomegaly Back: normal inspection, normal range of motion Extremities: normal inspection, normal capillary refill, normal range of motion, no edema Neurologic/Psych: no motor/sensory deficits, awake, alert, oriented x 3, normal gait, heel seat sander II-XII nml as tested, depressed affect Reflexes: 2+: bicep (R), bicep (L). Skin: intact, normal color, warm/dry Lymphatic: no anterior cervical sia Core Measures ACS in differential dx? Yes No ASA d/t Pharmacological CI (already taken) CVA/TIA Diagnosis No Sepsis Present: No Sepsis Focused Exam Completed? No Progress Differential Diagnosis: atrial fibrillation, costochondritis, hyperkalemia, hypovolemia, musculoskeletal pain, pancreatitis Plan of Care: Orders Procedure Date/time Status TROPONIN LEVEL 02/18 1515 Complete TROPONIN LEVEL 02/18 1209 Complete COMPREHENSIVE METABOLIC PANEL 02/18 1209 Complete CBC WITHOUT DIFFERENTIAL 02/18 1209 Complete EKG 02/18 1208 Active Laboratory Tests 02/18/18 1541: Troponin I < 0.01 02/18/18 1219: Anion Gap 15, Estimated GFR > 60, BUN/Creatinine Ratio 14.0, Glucose 131 H, Calcium 10.3 H, Total Bilirubin 0.9, AST 23, ALT 40, Alkaline Phosphatase 70, Troponin I < 0.01, Total Protein 7.6, Albumin 4.7, Globulin 2.9, Albumin/ Globulin Ratio 1.6, CBC w Diff NO MAN DIFF REQ, RBC 5.54, MCV 90.6, MCH 30.4, MCHC 33.5, RDW 13.6, MPV 8.6, Gran % 69.4, Lymphocytes % 23.2, Monocytes % 5.5, Eosinophils % 0.9, Basophils % 1.0, Absolute Granulocytes 6.5, Absolute Lymphocytes 2.2, Absolute Monocytes 0.5, Absolute Eosinophils 0.1, Absolute Basophils 0.1 Initial ED EKG: normal axis, normal intervals, normal p-waves, normal QRS complex, normal sinus rhythm, no ST T wave changes Prior EKG: unchanged Rhythm Strip: normal sinus rhythm Departure Departure Time of Disposition: 1640 Disposition: HOME OR SELF CARE Condition: Stable Clinical Impression Primary Impression: Chest pain syndrome Secondary Impressions: Anxiety with depression Referrals: Zandra COLE,José Miguel Srivastava MD,Martha (PCP/Family) Departure Forms: Customer Survey General Discharge Information Critical Care Note Critical Care Note Critical Care Time: 30-74 min (40)
[2018-02-18] MEDS ORDERED: ATIVAN1 M1 PO (16:51)
[2018-02-18 16:52] VITALS: BP 122/72
== END 2018-02-18 16:53 ==
LOC: ERH 12:07
PROVIDERS: Emergency Medicine
DX: R07.9 Chest pain, unspecified (principal); F41.8 Other specified anxiety disorders
CPT/HCPCS: 93005; 93010; 96365; 96375; 99291; J0131; J2765